=== PATIENT | female | born 1985 | race Caucasian/White ===

== ENCOUNTER 2018-04-16 18:28 | Observation (INO) ==
[2018-04-16] MEDS ORDERED: *HR* OxyCODONE Immed Rel 5 MG TABLET PO PRN (20:16)
[2018-04-16] MEDS ORDERED: Naloxone 0.4 MG/ML INJ IVP PRN (20:16)
[2018-04-16 21:14] LABS: Basophils % 0.4 %; Eosinophils # 0.3 K/mcL (0.0-0.6); Hematocrit 22.1 % (35.3-44.9); Immature Granulocytes % 0.3 % (0-4); Lymphocytes # 3.9 K/mcL (0.6-4.6); Lymphocytes % 35.8 %; Mean Corpuscular HGB Conc 31.7 g/dL (31.6-35.5); Mean Corpuscular Hemoglobin 26.1 pg (28.0-33.3); Mean Corpuscular Volume 82.5 fL (83.0-100.0); Mean Platelet Volume 9.7 fL (9.4-12.4); Monocytes # 0.5 K/mcL (0.0-1.3); Monocytes % 4.9 %; Neutrophils # 6.1 K/mcL (1.6-8.9); Platelet Count 283 K/mcL (140-400); Red Blood Count 2.68 M/mcL (3.82-4.97); Red Cell Distribution Width 16.1 % (11.5-14.5); Segmented Neutrophils % 55.6 %
--- NOTE | 2018-04-16 21:27 | Internal Med History&Physical ---
Date of Encounter: 04/17/18 Time of Encounter: 21:12 Internal Medicine - H&P: HPI Chief complaint: Vaginal Bleeding History of present illness: Ms. Frankel is a 32 year old female with past medical history of asthma who presents with vaginal bleeding of 2 days' duration. Patient reports that she began having heavy bleeding vaginally on Saturday noting large significant blood clots associated with feelings of weakness, shortness of breath and lightheadedness for the past 2 days. She states she was changing her pads every 10 minutes. The bleeding was worse with ambulation and relieved by sitting down. Patient attempted to come into the ED at [place] this morning however, because of recent events, turned away and subsequently went to an urgent care where she was told she appeared pale and was symptomatic and advised to go to the hospital. Patient went to [facility] and was eventually transferred to us. Patient has a reported history of menorrhagia. She has regular menses every 4 days with heavy bleeding on the first 2 days associated with a clots. However, last period was 3 months ago at which time she had a IUD placed in part to manage her heavy bleeding. She states she had her IUD removed last Saturday due to abdominal discomfort and cramping. Of note, patient had her tubes tied when she was 23. She currently denies any abdominal pain though reports some mild nausea without vomiting. Further denies any chest pain, palpitations but does report a near syncopal episode which occurred around 3 AM Saturday morning when she arose from bed to go use the bathroom. She states that she nearly blacked out but did not lose consciousness. At [place], hemoglobin was found to be 7.8 and mildly elevated white count of 11.8. Patient denies any fever, chills, dysuria, vaginal discharge or dysparanuia. She is currently sexually active with the father of her son. test was negative. Past Med Surg Social Fam HX - Past Medical History Medical history: asthma Psychiatric history: anxiety, panic disorder - Past Surgical History Additional surgical history: Tubal ligation - Social History Smoking Status: Never smoker Smokeless Tobacco Status: No Alcohol use: none Drug use: none - Family History Grandmother Living Status: Cause of : colon cancer Father Hx Family Endocrine Disorder: Yes Internal Medicine - H&P: Meds No Known Home Drugs 04/16/18 [History] 3 Allergy/AdvReac Type Severity Reaction Status Date / Time citalopram [From Celexa] AdvReac See Verified 04/16/18 15:07 Comments All Systems PM: A 10-system review of systems was performed and is negative for pertinent findings except as documented above in the HPI. - Constitutional Constitutional: no chills, no fever(s), no night sweats - EENT Eyes: no change in vision, no discharge, no pain, no photophobia Ears: no ear discharge, no ear pain, no tinnitus Nose, mouth and throat: no dysphagia, no nasal discharge, no neck pain, no sore throat - Cardiovascular Cardiovascular ROS IM: no chest pain, no diaphoresis, no dyspnea, no lightheadedness, no palpitations, no syncope - Respiratory Respiratory: no cough, no dyspnea, no wheezing, no excessive phlegm production - Gastrointestinal Gastrointestinal: no abdominal pain, no diarrhea, no hematemesis, no hematochezia, no melena, no nausea, no vomiting - Genitourinary Genitourinary: no change in urinary stream, no dysuria, no flank pain, no hematuria - Musculoskeletal Musculoskeletal ROS IM: no numbness, no tingling - Integumentary Integumentary IM: no rash, no unusual bruising - Neurological Neurological ROS: no confusion, no convulsions, no focal weakness, no numbness, no tingling, no tremor(s) - Hematologic/Lymphatic Hematologic/Lymphatic: no easy bruising - Constitutional Vitals: Temp Pulse Resp BP Pulse Ox 98.1 F 83 16 108/68 97 04/16/18 20:11 04/16/18 20:11 04/16/18 20:11 04/16/18 20:11 04/16/18 20:11 Exam: General: Alert and oriented 3; pleasant lying in bed in no acute distress. Skin:Normal color, no rash, no lesions. HEENT:EOM, pupils equal, round and reactive. Cardiovascular:Normal S1 & S2, no rubs, murmurs or gallops. No JVD. Pulse regular. Lungs:Normal breath sounds, no wheezes or crackles. Abdomen:Soft, non-tender, no rigidity. Extremities:No deformity, no edema or tenderness, no joint swelling or clubbing. Neurological:Normal cognition and motor skills. Pulses:Carotid and radial pulses normal +2. Rest of the physical exam is non contributory Internal Med - H&P Results - Labs CBC & Chem 7: 04/17/18 00:33 04/17/18 00:33 - Assessment and plan (1) Symptomatic anemia Current Visit: No Status: Acute Assessment and plan: Symptomatic anemia secondary to vaginal bleeding of unclear etiology. Initial hemoglobin at [place] found to be 7.8. Patient received a bolus of normal saline. Repeat hemoglobin upon arrival was found to be 7.0, with the drop most likely dilutional. We will continue IV fluids. Type and screen. Serial H&H. At this point symptoms unlikely to improve with only supportive care and patient most likely will need at least 1 unit of blood. MANAGEMENT CONSULTING consult in the morning. Order placed but needs to be called. (2) Leukocytosis Current Visit: Yes Status: Acute Assessment and plan: Leukocytosis with a WBC count of 11.8, likely stress-induced in the setting of symptomatic anemia. Repeat CBC now shows the WBC count has trended down to 10.9. We will monitor for now. Qualifiers: Leukocytosis type: unspecified Qualified Code(s): D72.829 - Elevated white blood cell count, unspecified (3) Asthma Current Visit: Yes Status: Acute Assessment and plan: Patient presenting with any acute exacerbation. Stable. Continue home albuterol as needed Qualifiers: Qualified Code(s): J45.909 - Unspecified asthma, uncomplicated - Time Spent With Patient Total time spent is greater than 50% in coordination of care (as documented) at patient's floor/unit and/or counseling patient:
[2018-04-16] MEDS: Iron Polysaccharide Complex 150 MG CAPSULE PO SCH (22:57)
[2018-04-16] MEDS: 0.9 % Sodium Chloride 1,000 ML IVC SCH (23:22)
[2018-04-17 01:09] LABS: Basophils % 0.4 %; Eosinophils # 0.3 K/mcL (0.0-0.6); Eosinophils % 3.4 %; Hematocrit 21.3 % (35.3-44.9); Hemoglobin 6.8 g/dL (11.5-15.4); Immature Granulocytes % 0.3 % (0-4); Lymphocytes # 3.7 K/mcL (0.6-4.6); Mean Corpuscular HGB Conc 31.9 g/dL (31.6-35.5); Mean Corpuscular Hemoglobin 26.3 pg (28.0-33.3); Mean Corpuscular Volume 82.2 fL (83.0-100.0); Mean Platelet Volume 9.9 fL (9.4-12.4); Monocytes # 0.7 K/mcL (0.0-1.3); Monocytes % 7.1 %; Neutrophils # 4.7 K/mcL (1.6-8.9); Platelet Count 280 K/mcL (140-400); Red Blood Count 2.59 M/mcL (3.82-4.97); Red Cell Distribution Width 15.9 % (11.5-14.5); Segmented Neutrophils % 49.8 %
[2018-04-17 01:29] LABS: Alanine Aminotransferase 7 Units/L (7-52); Albumin 3.4 g/dL (3.5-5.7); Albumin/Globulin Ratio 1.6 (1.1-2.2); Alkaline Phosphatase 43 Units/L (34-104); Aspartate Amino Transferase 9 Units/L (13-39); BUN/Creatinine Ratio 18 (6-26); Bilirubin,Total 0.2 mg/dL (0.3-1.0); Blood Urea Nitrogen 11 mg/dL (6-20); Calcium 8.1 mg/dL (8.6-10.3); Carbon Dioxide 26 mEq/L (23-29); Chloride 109 mEq/L (98-107); Globulin 2.1 g/dL (2.4-3.5); Glucose 123 mg/dL (70-105); Osmolality,Calculated 293 (280-300); Potassium 3.7 mEq/L (3.5-5.1); Sodium 141 mEq/L (136-145); Total Protein 5.5 g/dL (6.4-8.9); eGFR For Non-African Americans > 60 (> 60)
--- NOTE | 2018-04-17 06:27 | Event Note ---
Date of Encounter: 04/17/18 Time of Encounter: 00:30 We did discuss patient's hemoglobin level which prior to arrival was 7.8. Repeat CBC shortly after arrival showed a hemoglobin of 7.0. Patient received fluids at [place] and her current hemoglobin level most likely represents dilution. However patient continues to have intermittent vaginal bleeding associated with clots whenever she gets up to ambulate. A repeat CBC was performed at midnight and found to be 6.8. A type and screen was performed and I discussed the need for a possible transfusion with the patient who was reluctant to receive the transfusion. I discussed the pros and cons of transfusing 1 unit of packed red blood cells and that without doing so the patient would most likely remain symptomatic and could potentially lead to further complications. Patient still remained adamant in that she wanted to wait till the morning morning and speak with DESIGN TEACHER before transfusing.
[2018-04-17 09:11] LABS: Basophils # 0.1 K/mcL (0.0-0.2); Basophils % 0.7 %; Eosinophils # 0.2 K/mcL (0.0-0.6); Eosinophils % 2.8 %; Hematocrit 21.5 % (35.3-44.9); Hemoglobin 6.7 g/dL (11.5-15.4); Immature Granulocytes % 0.4 % (0-4); Lymphocytes # 2.7 K/mcL (0.6-4.6); Lymphocytes % 37.1 %; Mean Corpuscular HGB Conc 31.2 g/dL (31.6-35.5); Mean Corpuscular Hemoglobin 25.7 pg (28.0-33.3); Mean Corpuscular Volume 82.4 fL (83.0-100.0); Mean Platelet Volume 9.8 fL (9.4-12.4); Monocytes # 0.3 K/mcL (0.0-1.3); Monocytes % 4.4 %; Neutrophils # 3.9 K/mcL (1.6-8.9); Platelet Count 278 K/mcL (140-400); Red Blood Count 2.61 M/mcL (3.82-4.97); Red Cell Distribution Width 16.2 % (11.5-14.5); Segmented Neutrophils % 54.6 %
[2018-04-17] MEDS: Iron Polysaccharide Complex 150 MG CAPSULE PO SCH (09:29)
[2018-04-17] MEDS ORDERED: 0.9 % Sodium Chloride 1,000 ML IVC SCH (13:00)
[2018-04-17 15:03] LABS: Hematocrit 22.2 % (35.3-44.9); Hemoglobin 7.1 g/dL (11.5-15.4)
--- NOTE | 2018-04-17 16:21 | Internal Medicine Consult Note ---
Date of Encounter: 04/17/18 - Assessment and plan (1) Symptomatic anemia Current Visit: No Status: Acute (2) Leukocytosis Current Visit: Yes Status: Acute Qualifiers: Leukocytosis type: unspecified Qualified Code(s): D72.829 - Elevated white blood cell count, unspecified (3) Asthma Current Visit: Yes Status: Acute Qualifiers: Qualified Code(s): J45.909 - Unspecified asthma, uncomplicated - Time Spent With Patient Total time spent is greater than 50% in coordination of care (as documented) at patient's floor/unit and/or counseling patient: Internal Medicine - CN: HPI - Data of Consult Requesting Physician: Cristin Jones MD - Consult Narrative History of present illness: Ms. Frankel is a 32 year old female Past Med Surg Social Fam HX - Past Medical History Medical history: asthma Psychiatric history: anxiety, panic disorder - Past Surgical History Additional surgical history: Tubal ligation - Social History Smoking Status: Never smoker Smokeless Tobacco Status: No Alcohol use: none Drug use: none - Family History Grandmother Living Status: Cause of : colon cancer Father Hx Family Endocrine Disorder: Yes Internal Medicine - CN: Meds Albuterol Sulfate [Ventolin Hfa] 2 puff IH Q6H PRN 04/17/18 [History] 3 Allergy/AdvReac Type Severity Reaction Status Date / Time citalopram [From Celexa] AdvReac See Verified 04/16/18 15:07 Comments Hospitalist - CN: Exam - Constitutional Vitals: Temp Pulse Resp BP Pulse Ox 98.0 F 94 19 122/64 100 04/17/18 11:50 04/17/18 11:50 04/17/18 11:50 04/17/18 11:50 04/17/18 11:50 Internal Medicine - CN: Reslt - Labs CBC & Chem 7: 04/17/18 14:51 04/17/18 00:33 Labs: Short CBC 04/16/18 04/17/18 04/17/18 Range/Units 20:58 00:33 08:37 WBC 10.9 9.4 7.2 (4.3-11.1) K/mcL Hgb 7.0 L 6.8 L 6.7 L (11.5-15.4) g/dL Hct 22.1 L 21.3 L 21.5 L (35.3-44.9) % Plt Count 283 280 278 (140-400) K/mcL Neutrophils # 6.1 4.7 3.9 (1.6-8.9) K/mcL 04/17/18 Range/Units 14:51 WBC (4.3-11.1) K/mcL Hgb 7.1 L (11.5-15.4) g/dL Hct 22.2 L (35.3-44.9) % Plt Count (140-400) K/mcL Neutrophils # (1.6-8.9) K/mcL BMP 04/17/18 00:33 Sodium 141 Potassium 3.7 Chloride 109 H Carbon Dioxide 26 BUN 11 Creatinine 0.61 Glucose 123 H Calcium 8.1 L Liver Function 04/17/18 Range/Units 00:33 Total Bilirubin 0.2 L (0.3-1.0) mg/dL AST 9 L (13-39) Units/L ALT 7 (7-52) Units/L Alkaline Phosphatase 43 (34-104) Units/L Albumin 3.4 L (3.5-5.7) g/dL Consult Discharge Plan - Plan Referrals: Hugh Barrios MD [Primary Care Provider] -
--- NOTE | 2018-04-17 16:26 | Internal Med Progress Note ---
Hospitalist Progress Note - Encounter Date of Encounter: 04/17/18 Time of Encounter: 12:10 - Subjective Interval History: Pt was seen and assessed at bedside at 1210. Pt pale, alert, awake, oriented. Education completed and pt states that she is afraid to get blood. Pt states that she wants to talk to her mother before she signs consent for blood. We have rechecked hgb and she has been seen by STAVE CUTTING SUPERVISOR. She denies headache, n/v/d, SOB , chest pain, states that vaginal bleeding has slowed but she is still having clots. - Exam Vitals: Temp Pulse Resp BP Pulse Ox 98.0 F 94 19 122/64 100 04/17/18 11:50 04/17/18 11:50 04/17/18 11:50 04/17/18 11:50 04/17/18 11:50 Exam: General: Pt resting quietly on bed, no distress. Skin: pale, warm, dry, no rashes, lesions, redness Neurological: Pt is alert and awake, oriented x 3, Speech is clear, PERRLA, EOMI , no nystagmus, no pronator drift. strength equal x 4 extremities HEENT: mucous mumbranes moist, no conjuctival pallor Neck: supple, no tracheal deviation, no lymphadenopathy, tenderness, no thyromegaly Heart: S1S2 heard without gallops, clicks, murmurs, no bradycardia or tachycardia, pt has no peripheral edema, pedal and radial pulses palpable bilaterally. Lungs: clear throughout without wheezing, rales, or ronchi, respirations are unlabored Abdomen: soft and non tender with bowel sound present, no hepatomegaly. Psych: Normal affect with good eye contact - Assessment and Plan (1) Symptomatic anemia Current Visit: Yes Status: Acute Assessment and Plan: Symptomatic anemia secondary to vaginal bleeding of unclear etiology. Initial hemoglobin at [place] found to be 7.8. Patient received a bolus of normal saline. Repeat hemoglobin upon arrival was found to be 7.0, with the drop most likely dilutional. We will continue IV fluids. Pt has refused blood all day, stating that she has anxiety and is afraid to get blood and gives several reasons why. Education has been completed by me, primary RN, and STAVE CUTTING SUPERVISOR PHOTOENGRAVING RETOUCHER; at this time, 16:28, we are still waiting to see if she is going to consent to the blood. Repeat Hgb 7.1. Continue gentle IVF hydration at 75ml/hour 2 units PRBCs ordered and ready Continue to trend Hgb q6h (2) Leukocytosis Current Visit: Yes Status: Acute Assessment and Plan: Leukocytosis with a WBC count of 11.8, likely stress-induced in the setting of symptomatic anemia. Repeat CBC now shows the WBC count has trended down to 10.9. We will monitor for now. 04/17- Resolved (3) Asthma Current Visit: Yes Status: Acute Assessment and Plan: No acute exacerbation. Continue home medications. - Time Spent with Patient Total time spent is greater than 50% in coordination of care (as documented) at patient's floor/unit and/or counseling patient: less than 15 minutes Plan of Care Discussed with: patient Internal Medicine: Result - Labs CBC & Chem 7: 04/17/18 14:51 04/17/18 00:33 Labs: Short CBC 04/16/18 04/17/18 04/17/18 Range/Units 20:58 00:33 08:37 WBC 10.9 9.4 7.2 (4.3-11.1) K/mcL Hgb 7.0 L 6.8 L 6.7 L (11.5-15.4) g/dL Hct 22.1 L 21.3 L 21.5 L (35.3-44.9) % Plt Count 283 280 278 (140-400) K/mcL Neutrophils # 6.1 4.7 3.9 (1.6-8.9) K/mcL 04/17/18 Range/Units 14:51 WBC (4.3-11.1) K/mcL Hgb 7.1 L (11.5-15.4) g/dL Hct 22.2 L (35.3-44.9) % Plt Count (140-400) K/mcL Neutrophils # (1.6-8.9) K/mcL BMP 04/17/18 00:33 Sodium 141 Potassium 3.7 Chloride 109 H Carbon Dioxide 26 BUN 11 Creatinine 0.61 Glucose 123 H Calcium 8.1 L Liver Function 04/17/18 Range/Units 00:33 Total Bilirubin 0.2 L (0.3-1.0) mg/dL AST 9 L (13-39) Units/L ALT 7 (7-52) Units/L Alkaline Phosphatase 43 (34-104) Units/L Albumin 3.4 L (3.5-5.7) g/dL Consult Discharge Plan - Plan Referrals: Hugh Barrios MD [Primary Care Provider] - (2) Leukocytosis Qualifiers: Leukocytosis type: unspecified Qualified Code(s): D72.829 - Elevated white blood cell count, unspecified (3) Asthma Qualifiers: Qualified Code(s): J45.909 - Unspecified asthma, uncomplicated
[2018-04-17] MEDS: 0.9 % Sodium Chloride 1,000 ML IVC SCH (16:43)
[2018-04-17] MEDS ORDERED: Ibuprofen 800 MG TABLET PO PRN (17:29)
--- NOTE | 2018-04-17 17:41 | OB/GYN Consult Note ---
Date of Encounter: 04/17/18 Time of Encounter: 15:00 Assessment and Plan (1) Dysfunctional uterine bleeding Current Visit: No Status: Acute Start megace this evening Revisit blood transfusion option Follow up with Dr. Leal History of Present Illness Consult date: 04/17/18 Requesting physician: Winsome Alcantara Reason for consult: menorrhagia History of present illness: Ms. Frankel is a 32-year-old female who presented yesterday from [facility] ED with c/o heavy vaginal bleeding s/p IUD removal. She reports she does have a history of heavy bleeding and that this is why she had the IUD placed. We shared a lengthy discussion regarding stopping the bleeding and replacing the blood that has been lost. She feels anxious regarding receiving other people's blood and does not readily accept the recommended megace to stop the bleeding. We spoke for about 20 minutes regarding the risks and benefits of taking each recommendation. She agrees to take the megace and will consider the blood as well. She reports some mild sob and lightheadedness. Past Med Surg Social Fam HX - Past Medical History Medical history: asthma Psychiatric history: anxiety, panic disorder - Past Surgical History Additional surgical history: Tubal ligation - Social History Smoking Status: Never smoker Smokeless Tobacco Status: No Alcohol use: none Drug use: none - Family History Grandmother Living Status: Cause of : colon cancer Father Hx Family Endocrine Disorder: Yes Medications and Allergies Albuterol Sulfate [Ventolin Hfa] 2 puff IH Q6H PRN 04/17/18 [History] 3 Allergy/AdvReac Type Severity Reaction Status Date / Time citalopram [From Celexa] AdvReac See Verified 04/16/18 15:07 Comments Review of Systems All Systems: reviewed and no additional remarkable complaints except as stated Exam - Vital Signs Vital signs: Initial Vital Signs Temp Pulse Resp BP Pulse Ox 98.1 F 83 16 108/68 97 04/16/18 20:11 04/16/18 20:11 04/16/18 20:11 04/16/18 20:11 04/16/18 20:11 - Constitutional Constitutional: well developed, well nourished, average body habitus, mild distress - HEENT HEENT: Pallor, PERRL, Normocephaly, Mucus Membranes Dry - Neck Neck exam: full ROM - Lungs Respiratory exam: CTAB - Cardiovascular Cardiovascular exam: RRR, +S1, +S2 - Breasts Breast: bilateral: normal - Abdomen Abdomen: Present: bowel sounds normal, non tender - Extremities Extremities exam: pedal edema, radial pulses palpable and symmetrical - Vulva Vulva: bilateral: normal - Vagina Vagina: Present: normal moisture - Uterus Uterus exam: Present: normal size, normal contour - Adnexa Adnexa: bilateral: normal - Anus/Rectum Anus/Rectum: Present: normal perianal skin Results Result Diagrams: 04/17/18 14:51 04/17/18 00:33 Abnormal lab results RBC 2.61 M/mcL (3.82-4.97) L 04/17/18 08:37 Hgb 7.1 g/dL (11.5-15.4) L 04/17/18 14:51 Hct 22.2 % (35.3-44.9) L 04/17/18 14:51 MCV 82.4 fL (83.0-100.0) L 04/17/18 08:37 MCH 25.7 pg (28.0-33.3) L 04/17/18 08:37 MCHC 31.2 g/dL (31.6-35.5) L 04/17/18 08:37 RDW 16.2 % (11.5-14.5) H 04/17/18 08:37 Chloride 109 mEq/L (98-107) H 04/17/18 00:33 Glucose 123 mg/dL (70-105) H 04/17/18 00:33 Calcium 8.1 mg/dL (8.6-10.3) L 04/17/18 00:33 Total Bilirubin 0.2 mg/dL (0.3-1.0) L 04/17/18 00:33 AST 9 Units/L (13-39) L 04/17/18 00:33 Serum Total Protein 5.5 g/dL (6.4-8.9) L 04/17/18 00:33 Albumin 3.4 g/dL (3.5-5.7) L 04/17/18 00:33 Globulin 2.1 g/dL (2.4-3.5) L 04/17/18 00:33 All other labs normal. Consult Discharge Plan - Plan Referrals: Hugh Barrios MD [Primary Care Provider] -
[2018-04-17 20:24] LABS: Hematocrit 22.2 % (35.3-44.9); Hemoglobin 6.9 g/dL (11.5-15.4)
[2018-04-17] MEDS: 0.9 % Sodium Chloride 250 ML IVC SCH ×2 (21:16→23:12)
[2018-04-17] MEDS: Acetaminophen 325 MG TABLET PO PRN (22:00)
[2018-04-18 03:36] LABS: Basophils # 0.1 K/mcL (0.0-0.2); Basophils % 0.6 %; Eosinophils # 0.3 K/mcL (0.0-0.6); Eosinophils % 2.9 %; Hematocrit 28.2 % (35.3-44.9); Immature Granulocytes % 0.7 % (0-4); Lymphocytes # 4.1 K/mcL (0.6-4.6); Lymphocytes % 37.7 %; Mean Corpuscular HGB Conc 32.6 g/dL (31.6-35.5); Mean Corpuscular Hemoglobin 27.6 pg (28.0-33.3); Mean Corpuscular Volume 84.7 fL (83.0-100.0); Monocytes # 0.5 K/mcL (0.0-1.3); Monocytes % 4.7 %; Neutrophils # 5.8 K/mcL (1.6-8.9); Platelet Count 308 K/mcL (140-400); Red Blood Count 3.33 M/mcL (3.82-4.97); Red Cell Distribution Width 15.3 % (11.5-14.5); Segmented Neutrophils % 53.4 %
[2018-04-18 03:47] LABS: Hemoglobin 9.2 g/dL (11.5-15.4)
[2018-04-18 08:41] LABS: Hematocrit 29.7 % (35.3-44.9); Hemoglobin 9.6 g/dL (11.5-15.4)
--- NOTE | 2018-04-18 09:29 | Discharge Summary ---
- NOTES TO OUTPATIENT PROVIDER Notes to Outpatient Provider: Pt was given Megace 20mg po BID x 7 days and FeSO4 325mg po BID x 7 days for symptomatic anemia and DUB. Date of Encounter: 04/18/18 Time of Encounter: 09:15 - Discharge Diagnosis (1) Symptomatic anemia Priority: Secondary Status: Acute Assessment and Plan: Symptomatic anemia secondary to vaginal bleeding of unclear etiology. Initial hemoglobin at [place] found to be 7.8. Patient received a bolus of normal saline. Repeat hemoglobin upon arrival was found to be 7.0, with the drop most likely dilutional. We will continue IV fluids. Pt has refused blood all day, stating that she has anxiety and is afraid to get blood and gives several reasons why. Education was completed by me, primary RN, and REAL ESTATE ATTORNEY HAND CLOTH FOLDER. 04/18- Pt consented to 2 units PRBCs and states that she is feeling better. Hgb this a.m. 9.6 today, has remained stable. She reports some improvement in the amount of vaginal bleeding today. Pt is going to make an appointment with Dr. Ragsdale and follow up. (2) Leukocytosis Priority: Secondary Status: Resolved Assessment and Plan: Leukocytosis with a WBC count of 11.8, likely stress-induced in the setting of symptomatic anemia. Repeat CBC now shows the WBC count has trended down to 10.9. We will monitor for now. 04/17- Resolved Qualifiers: Leukocytosis type: unspecified Qualified Code(s): D72.829 - Elevated white blood cell count, unspecified (3) Asthma Priority: Secondary Status: Chronic Assessment and Plan: No acute exacerbation. Continue home medications. Lungs are clear and pt is in no distress. Qualifiers: Asthma severity: unspecified severity Asthma persistence: unspecified Asthma complication type: unspecified Qualified Code(s): J45.909 - Unspecified asthma, uncomplicated (4) Vaginal bleeding Priority: Primary Status: Acute Assessment and Plan: Pt with history of heavy vaginal bleeding. IUD placed 3 months ago to help alleviate bleeding, but pt had cramping and pain and it was removed on 04/09. Pt reports heavy vaginal bleeding with large clots, dizziness, and weakness, and shortness of breath. Pt reports that she was changing her pad every 10-15 minutes prior to admission Pt was reluctant to have blood transfusion, but did overnight and states that she is feeling better. REAL ESTATE ATTORNEY has seen pt, I appreciate their recommendation. Pt has been started on Megace 20mg po BID for vaginal bleeding. She states that bleeding has slowed some and is aware that it might take some time for it to stop. Follow up with REAL ESTATE ATTORNEY outpatient. Hospital course: Please see A&P for hospital course. Discharge discussed with: patient, nurse - Time Spent with Patient Total time spent providing and/or coordinating discharge services: Less than 30 minutes - Discharge Medications Prescriptions: Ferrous Sulfate 325 mg PO BID #14 tablet Megestrol Acetate [Megace] 20 mg PO BID #14 tablet Home Medications: Albuterol Sulfate [Ventolin Hfa] 2 puff IH Q6H PRN 04/17/18 [History] Ferrous Sulfate 325 mg PO BID #14 tablet 04/18/18 [Rx] Megestrol Acetate [Megace] 20 mg PO BID #14 tablet 04/18/18 [Rx] Allergies/Adverse Reactions: 3 Allergy/AdvReac Type Severity Reaction Status Date / Time citalopram [From Celexa] AdvReac See Verified 04/16/18 15:07 Comments Date of admission: 04/16/18 19:46 Primary care physician: Hugh Barrios MD Consults: 04/16/18 22:10 Consult to [employer]SE [CONS] Routine Consulting Provider: SALESPERSON [employer]MENT Pao Reason for Consult: Vaginal Bleeding Call Completed: No Discharging clinician: Winsome Alcantara Anticipated date of discharge: 04/18/18 - Constitutional Vitals: Temp Pulse Resp BP Pulse Ox 98.1 F 70 16 94/58 99 04/18/18 07:34 04/18/18 07:34 04/18/18 07:34 04/18/18 07:34 04/18/18 07:34 General appearance: Present: A&O X 3, pleasant, no acute distress, answers questions appropriately Exam: as above - Head Head exam: Present: atraumatic, normal inspection, normocephalic - Eye Eye exam: Present: normal appearance, conjuntiva pink, sclera anicteric - Neck Neck exam general surgery: Present: supple, trachea midline. Absent: lymphadenopathy, tenderness - Respiratory Respiratory exam: Present: CTAB. Absent: accessory muscle use, chest wall tenderness, rales, respiratory distress, rhonchi, wheezes - Cardiovascular Cardiovascular exam: Present: RRR, +S1, +S2. Absent: diastolic murmur, gallop, rubs, systolic murmur - GI/Abdominal GI/Abdominal exam: Present: normal bowel sounds, soft. Absent: distended, hepatomegaly, tenderness - Extremities Exam Extremities exam: Present: normal capillary refill, normal inspection, warm, radial pulses palpable and symmetrical. Absent: calf tenderness, cyanotic, pedal edema, tenderness - Neurological Exam Neurological exam: Present: alert, oriented X3, no focal deficits. Absent: facial droop, speech deficit - Skin Skin exam: Present: dry, intact, normal color, warm. Absent: rash - Patient Status Disposition: Home, Self-Care Condition: Good Functional capacity at discharge: independent ambulation Overall status at discharge: patient is progressing back to baseline - Discharge Instructions Follow Up With: Hugh Barrios MD [Primary Care Provider] - 04/24/18 10:15 am Additional Instructions: Follow up with your PCP in the next 3-5 days for a recheck. Follow up with REAL ESTATE ATTORNEY as scheduled Take your medications as directed. Return to the ER as needed for any other problems or concerns, or if your symptoms return or worsen. Resume your normal medications and return to your normal diet and activties as tolerated. - Diet and Activity Activity: increase activity as tolerated Diet: advance to your usual diet
[2018-04-18] MEDS: Iron Polysaccharide Complex 150 MG CAPSULE PO SCH (10:25)
[2018-04-18] MEDS: Acetaminophen 325 MG TABLET PO PRN (12:57)
[2018-04-18 15:19] LABS: Hematocrit 28.9 % (35.3-44.9); Hemoglobin 9.6 g/dL (11.5-15.4)
[2018-04-18 15:31] VITALS: BP 113/76
== END 2018-04-18 17:04 | disposition home or self-care (01) ==
LOC: 3BNU
PROVIDERS: ADMIT Internal Medicine; ATTEND Internal Medicine